=== PATIENT | female | born 1970 | race Caucasian/White ===

== ENCOUNTER → 2018-01-01 12:43 | Outpatient (CLI) | payer MEDICAID, SELFPAY ==
--- NOTE | 2018-01-01 12:46 | MR_ITS ---
MR lumbar spine wo con, MR 3-d myelogram/MRCP HISTORY: PT states low back pain X years. Bilateral leg pain. Some numbness and tingling. PT also states tumors in left leg X years. ITS.REASON: back pain ORDERING PHYSICIAN: Margarito Rivera MD PATIENT AGE: 47 years Comparison: MRI 11-01-16 TECHNIQUE: Standard multiplanar multiecho sequences are performed without contrast. 3-D MIP and myelographic images are also rendered and reviewed FINDINGS: There is normal alignment. The spinal cord is at the T12-L1 level. T12-L1: Mild facet hypertrophic change. L1-L2: Anterior osteophytes L2-L3: Mild concentric bulging disc along with facet and ligamentum flavum hypertrophy with mild bilateral lateral recess and foraminal narrowing. L3-L4: Mild degenerative disc disease with concentric bulging disc along with facet and ligamentum flavum hypertrophy with mild bilateral lateral recess and foraminal narrowing. L4-L5: Degenerative disc disease with bulging disc with a small central disc protrusion slightly eccentric toward the right. Facet and ligamentum flavum hypertrophic change also noted severe bilateral lateral recess narrowing right greater than left along with canal stenosis and moderate bilateral foraminal narrowing. These findings are similar when compared to the previous exam. L5-S1: Degenerative disc disease with bulging disc with small broad-based central disc protrusion/disc osteophyte complex along with facet and ligamentum flavum hypertrophy causing moderate to severe bilateral lateral recess and foraminal narrowing. Canal stenosis is also present at this level. No new findings are evident. IMPRESSION: 1. Multilevel lumbar spondylosis with degenerative disc disease, bulging disc, facet and ligamentum hypertrophy with lateral recess and foraminal narrowing at multiple levels. Please see above for detailed description at each level. 2. L4-L5: Degenerative disc disease with bulging disc with a small central disc protrusion slightly eccentric toward the right. Facet and ligamentum flavum hypertrophic change also noted severe bilateral lateral recess narrowing right greater than left along with canal stenosis and moderate bilateral foraminal narrowing. These findings are similar when compared to the previous exam. 3. L5-S1: Degenerative disc disease with bulging disc with small broad-based central disc protrusion/disc osteophyte complex along with facet and ligamentum flavum hypertrophy causing moderate to severe bilateral lateral recess and foraminal narrowing. Canal stenosis also present at this level at 10 mm. This also appears similar when compared with previous exam
== END ==
PROVIDERS: Family Provider Emergency Medicine; PCP Emergency Medicine; Visit Provider Emergency Medicine
DX: M54.30 Sciatica, unspecified side (principal); M54.9 Dorsalgia, unspecified
CPT/HCPCS: 72148; 76376

== ENCOUNTER → 2018-01-17 10:41 | Outpatient (CLI) | payer MEDICAID, SELFPAY ==
[2018-01-17 15:18] LABS: Amphetamine/Metha Screen,Urine Negative ng/mL (<1000); Barbiturates Screen,Urine Negative ng/mL (<200); Benzodiazepines Screen,Urine Negative ng/mL (<200); Cannabinoid Screen,Urine Positive ng/mL (<50); Cocaine Screen,Urine Positive ng/mL (<300); Methadone Screen,Urine Negative ng/mL (<300); Opiate Screen,Urine Negative ng/mL (<300); Phencyclidine Screen,Urine Negative ng/mL (<25)
== END ==
PROVIDERS: Visit Provider Nurse Practitioner Family
DX: Z79.899 Other long term (current) drug therapy (principal)
CPT/HCPCS: 80305